=== PATIENT | female | born 1990 | race Two or more races ===

== ENCOUNTER 2023-09-21 22:55 | Inpatient (IN) | payer OTHER ==
[2023-09-21 23:22] VITALS: BMI 25.2
[2023-09-22] MEDS ORDERED: BENZONATATE 200 MG CAPSULE PO PRN (01:42)
[2023-09-22] MEDS ORDERED: BENZOCAINE/MENTHOL (CHLORASEPTIC ) LOZENGE MM PRN (01:42)
[2023-09-22] MEDS ORDERED: MAGNESIUM HYDROX 2400MG/30ML ORAL SUSPENSION 30 ML CUP PO PRN (01:42)
[2023-09-22] MEDS ORDERED: MAG HYDROX/AL HYDROX/SIMETH 30 ML UNIT-DOSE CUP PO PRN (01:42)
[2023-09-22] MEDS ORDERED: guaiFENesin 600 MG TABLET.ER (FP) PO PRN (01:42)
[2023-09-22] MEDS ORDERED: NALOXONE HCL (KLOXXADO) 8 MG SPRAY NS PRN (01:42)
[2023-09-22] MEDS ORDERED: NALOXONE HCL 0.4 MG/ML VIAL IM PRN (01:42)
[2023-09-22] MEDS ORDERED: ACETAMINOPHEN 325 MG TABLET (FP) PO PRN (01:42)
[2023-09-22] MEDS ORDERED: IBUPROFEN 400 MG TABLET (FP) PO PRN (01:42)
[2023-09-22] MEDS ORDERED: BISMUTH SUBSALICYLATE 524 MG/30 ML PO PRN (01:42)
[2023-09-22] MEDS ORDERED: POLYETHYLENE GLYCOL (HEALTHYLAX) 3350 17 GM PACKET PO PRN (01:42)
[2023-09-22] MEDS ORDERED: LOPERAMIDE HCL 2 MG CAPSULE PO PRN (01:42)
[2023-09-22] MEDS ORDERED: LORazepam 1 MG TABLET ONE (02:04)
[2023-09-22] MEDS: LORazepam 1 MG TABLET PO PRN ×2 (02:06→20:04)
[2023-09-22] MEDS: LORazepam 2 MG TABLET PO SCH ×4 (05:37→22:18)
[2023-09-22] MEDS: PRENATAL VITAMINS W/ FOLIC ACID TABLET (FP) PO SCH (10:31)
[2023-09-22] MEDS: hydrOXYzine PAMOATE 25 MG CAPSULE (FP) PO PRN ×2 (10:34→22:17)
[2023-09-22] MEDS: METHOCARBAMOL 500 MG TABLET PO PRN (10:34)
[2023-09-22] MEDS ORDERED: MELATONIN 5 MG TABLETS PO SCH (22:00)
[2023-09-22] MEDS: THIAMINE HCL 100 MG TABLET (FP) PO SCH (22:16)
[2023-09-22] MEDS: IBUPROFEN 600 MG TABLET (FP) PO PRN (22:16)
[2023-09-23] MEDS: LORazepam 1 MG TABLET PO SCH ×4 (05:36→22:11)
[2023-09-23] MEDS: PRENATAL VITAMINS W/ FOLIC ACID TABLET (FP) PO SCH (10:33)
[2023-09-23] MEDS: hydrOXYzine PAMOATE 25 MG CAPSULE (FP) PO PRN ×2 (10:35→17:54)
[2023-09-23] MEDS: METHOCARBAMOL 500 MG TABLET PO PRN (10:35)
[2023-09-23 10:40] LABS: HEMATOCRIT 29.9 % (32.4-45.2); HEMOGLOBIN 9.5 GM/dL (10.7-15.3); MCH 23.1 pg (25.7-33.7); MCHC 31.6 g/dl (32.0-36.0); MEAN CELL VOLUME 73.2 fl (80-96); MEAN PLT VOLUME 8.2 fl (7.5-11.1); PLATELET COUNT 168 10^3/uL (134-434); RBC 4.09 M/mm3 (3.60-5.2); RDW 20.8 % (11.6-15.6); WHITE BLOOD COUNT 2.3 K/mm3 (4.0-10.0)
[2023-09-23 11:05] LABS: POTASSIUM 3.1 mmol/L (3.5-5.1)
[2023-09-23 11:11] LABS: CALCIUM 8.6 mg/dL (8.5-10.1)
[2023-09-23 11:12] LABS: ALBUMIN 3.4 g/dl (3.4-5.0); BLOOD UREA NITROGEN 11.1 mg/dL (7-18)
[2023-09-23 11:15] LABS: CREATININE 0.4 mg/dL (0.55-1.3)
[2023-09-23 11:16] LABS: BILIRUBIN,TOTAL 0.3 mg/dL (0.2-1); TOT PROT 6.6 g/dl (6.4-8.2)
[2023-09-23] MEDS ORDERED: POTASSIUM CHLORIDE ORAL LIQUID 20 MEQ/15 ML PO ONE ×3 (14:45→22:15)
[2023-09-23] MEDS: ONDANSETRON *ODT* 4 MG TABLET SL PRN (17:54)
[2023-09-23] MEDS: LORazepam 1 MG TABLET PO PRN (19:47)
[2023-09-23] MEDS: POTASSIUM CHLORIDE ORAL LIQUID 20 MEQ/15 ML PO ONE ×2 (19:48→22:18)
[2023-09-23] MEDS ORDERED: hydrOXYzine PAMOATE 25 MG CAPSULE (FP) PO ONE (22:00)
[2023-09-23] MEDS: THIAMINE HCL 100 MG TABLET (FP) PO SCH (22:12)
[2023-09-23] MEDS: MELATONIN 5 MG TABLETS PO SCH (22:12)
[2023-09-24] MEDS ORDERED: LORazepam 0.5 MG TABLET PO PRN
[2023-09-24] MEDS: METHOCARBAMOL 500 MG TABLET PO PRN ×2 (05:45→22:16)
[2023-09-24] MEDS: LORazepam 0.5 MG TABLET PO SCH ×4 (05:46→22:16)
[2023-09-24] MEDS: hydrOXYzine PAMOATE 25 MG CAPSULE (FP) PO PRN ×2 (10:14→17:46)
[2023-09-24] MEDS: PRENATAL VITAMINS W/ FOLIC ACID TABLET (FP) PO SCH (10:14)
[2023-09-24] MEDS: ONDANSETRON *ODT* 4 MG TABLET SL PRN (17:51)
[2023-09-24] MEDS: MELATONIN 5 MG TABLETS PO SCH (22:15)
[2023-09-24] MEDS: THIAMINE HCL 100 MG TABLET (FP) PO SCH (22:15)
[2023-09-24] MEDS: IBUPROFEN 600 MG TABLET (FP) PO PRN (23:49)
[2023-09-25] MEDS ORDERED: LORazepam 0.5 MG TABLET PO ONE (05:00)
[2023-09-25 06:38] VITALS: RESP 18
[2023-09-25 09:15] VITALS: BP 121/79; PULSE 78; TEMP 97.1
[2023-09-25] MEDS: PRENATAL VITAMINS W/ FOLIC ACID TABLET (FP) PO SCH (09:34)
== END 2023-09-25 09:30 | disposition home or self-care (01) | DRG 775 ==
LOC: YASAS 22:55 → Y6N 09-22 02:56
PROVIDERS: ADMIT Allergy & Immunology; ATTEND Allergy & Immunology
PROC: HZ2ZZZZ Detoxification Services for Substance Abuse Treatment (ICD-10-PCS; principal; 2023-09-22)
DX: F10.230 Alcohol dependence with withdrawal, uncomplicated (principal); F10.282 Alcohol dependence with alcohol-induced sleep disorder; F41.9 Anxiety disorder, unspecified; D70.2 Other drug-induced agranulocytosis; D60.9 Acquired pure red cell aplasia, unspecified; E87.6 Hypokalemia; K76.0 Fatty (change of) liver, not elsewhere classified; Z87.891 Personal history of nicotine dependence; Z62.810 Personal history of physical and sexual abuse in childhood; Z56.0 Unemployment, unspecified; Z59.00 Homelessness unspecified
CPT/HCPCS: 36415; 80053; 80307; 81025; 84132; 85027; 86780; 87635; 87811; 93005; 93010; Q0162